=== PATIENT | male | born 1955 | race African-American/Black ===

== ENCOUNTER 2017-12-14 13:56 | Outpatient (CLI) | payer OTHER ==
--- NOTE | 2017-12-14 16:35 | MRI ---
LUMBAR SPINE MRI WITHOUT CONTRAST 12/14/17 HISTORY: Low back pain with bilateral leg weakness x5 years. COMPARISON: None. TECHNIQUE: MRI lumbar spine is performed without intravenous gadolinium administration. Multisequential, multipl carlos imaging is performed. FINDINGS: There is diffuse T1 marrow signal hypointensity of the lumbar vertebrae. Vertebral body height is ede ntained. No fracture. No significant STIR hyperintensity to suggest edema or ligamentous injury. Symm etric signal intensity of the psoas muscles. Appropriate signal intensity of the visualized solid org ans. Conus medullaris terminates at the inferior end plate of L1. T12-L1: Adequate disc hydration. No significant central canal stenosis or foraminal narrowing. L1-L2: Adequate disc hydration. No significant central canal stenosis or foraminal narrowing. L2-L3: Desiccation with mild loss of disc space height. No significant posterior disc abnormality. No significant central canal stenosis. Moderate bilateral foraminal narrowing. L3-L4: Desiccation with mild loss of disc space height. There is a generalized disc bulge. No high gr ngozi central canal stenosis. Moderate bilateral foraminal narrowing. L4-L5: Desiccation with moderate loss of disc space height. Generalized disc bulge with a high grade central canal stenosis. Moderate bilateral foraminal narrowing. L5-S1: Adequate disc hydration. No significant central canal stenosis. Mild bilateral foraminal narro wing. IMPRESSION: 1. Decreased AP diameter of the central spinal canal in part due to congenitally foreshortened p edicles. Despite degenerative disc disease and loss of disc space height, no high grade central canal stenosis. However, there is significant bilateral foraminal narrowing at multiple levels. 2. Diffuse T1 marrow signal hypointensity of the lumbar vertebrae. Correlate for anemia or marro w infiltrative process. POS: [facility]
== END 2017-12-14 13:57 | disposition home or self-care (01) ==
LOC: TBSIIMAG 13:56
PROVIDERS: ATTEND Anesthesiology
DX: M54.5 Low back pain (principal); M51.36 Other intervertebral disc degeneration, lumbar region; M48.061 Spinal stenosis, lumbar region without neurogenic claudication; M47.892 Other spondylosis, cervical region; M46.1 Sacroiliitis, not elsewhere classified; M54.2 Cervicalgia; Z68.41 Body mass index [BMI] 40.0-44.9, adult
CPT/HCPCS: 72148

== ENCOUNTER 2018-02-01 12:19 | Outpatient (CLI) | payer OTHER | END 2018-02-01 12:20 | disposition home or self-care (01) | LOC: BICULT 12:19 | PROVIDERS: ATTEND Family Medicine | DX: I10 Essential (primary) hypertension (principal) | CPT/HCPCS: 76770 ==

== ENCOUNTER 2018-04-10 12:58 | Outpatient (CLI) | payer OTHER ==
--- NOTE | 2018-04-10 14:37 | RAD ---
CHEST 2 VIEWS: Date: 04/10/18 HISTORY: Chest pain COMPARISON: Chest radiograph from 2016. FINDINGS: Lungs without focal air space consolidation, pneumothorax, or effusion. Cardiomediastinal silhouette and mediastinal contours similar. No acute osseous abnormality. IMPRESSION: No acute intrathoracic abnormality. POS: [facility]
== END 2018-04-10 12:59 | disposition home or self-care (01) ==
LOC: RAD 12:58
PROVIDERS: ATTEND Internal Medicine Critical Care Medicine
DX: R06.00 Dyspnea, unspecified (principal)
CPT/HCPCS: 71046

== ENCOUNTER 2018-06-01 12:17 | Outpatient (CLI) | payer OTHER | END 2018-06-01 12:18 | disposition home or self-care (01) | LOC: CP 12:17 | PROVIDERS: ATTEND Internal Medicine Critical Care Medicine | DX: J45.909 Unspecified asthma, uncomplicated (principal) | CPT/HCPCS: 94060; 94727; 94729 ==

== ENCOUNTER 2018-06-02 07:56 | Outpatient (CLI) | payer OTHER ==
[2018-06-05] MEDS ORDERED: Iopamidol 370 76% 100 ML VIAL ONE (12:58)
--- NOTE | 2018-06-05 16:03 | CT ---
CT ANGIOGRAM ABDOMEN AND PELVIS WITH IV CONTRAST AND 3D RECONSTRUCTIONS CT ANGIOGRAM BILATERAL LOWER EXTREMITIES WITH RUN OFF TO THE FEET WITH IV CONTRAST AND 3D RECONSTRUCT IONS: Date: 06-05-18 History: Peripheral vascular disease. Comparison: 04-20-16 FINDINGS: CTA ABDOMEN AND PELVIS: There is an ill-defined area of enhancement again present in the right hepatic lobe, unchanged from p rior exam. Dedicated imaging of the liver was obtained on 07-08-16 showed this enhancement, and finding s are probably related to transient hepatic arterial difference versus a small hematoma in this regio n. This lesion was not seen on portal venous phase of imaging. There is a focal areas of enhancement also present within the spleen. This may represent a small chavez ngioma or phase of enhancement as well. This is stable from prior study in 2016, and the area of enha ncement in the spleen also resolved on portal venous phase of imaging on prior exam. Small hiatal hernia is present. There is an approximately 2 mm nonobstructing calculus mid portion right kidney with an approximately 3 mm nonobstructing calculus in the mid portion of the left kidney. The pancreas and bilateral adrenal glands as well as urinary bladder demonstrate a normal CT appearan ce. There is mild calcified atherosclerotic plaque in the abdominal aorta and iliac arteries, similar to prior study. The abdominal aorta is normal in caliber without evidence of an aortic dissection. T he celiac, superior mesenteric, and inferior mesenteric arteries are visualized and patent. There are two patent left renal arteries with single patent right renal artery. Iliac arteries bilaterally are patent. Stable degenerative changes are noted in the lumbar spine. BILATERAL LOWER EXTREMITY RUN OFF: Right lower extremity: The right common femoral, superficial femoral, profunda femoral, and popliteal arteries are patent. There is three vessel runoff to the right lower extremity; although the dorsali s pedis artery is very small in caliber at the level of the ankle and foot. Left lower extremity: The left common femoral, superficial femoral, profunda femoral, and popliteal a rteries are patent. There is three vessel runoff to the left lower extremity; although the dorsalis p aurora artery is not well seen at the level of the foot. Posterior tibial artery is seen in the foot. IMPRESSION: 1. Patent mesenteric vessels as well as renal arteries. 2. Normal caliber abdominal aorta without evidence of an aortic dissection. 3. Three vessel runoff to the bilateral lower extremities; although, the dorsalis pedis artery in eac h foot is very small in caliber and not well evaluated at the level of the foot. 4. Nonobstructing bilateral renal calculi. 5. Colonic diverticulosis. POS: [facility]
== END 2018-06-02 07:57 | disposition home or self-care (01) ==
LOC: BICCT 07:56
PROVIDERS: ATTEND Family Medicine
DX: I73.9 Peripheral vascular disease, unspecified (principal); N20.0 Calculus of kidney; K57.30 Diverticulosis of large intestine without perforation or abscess without bleeding
CPT/HCPCS: 75635